=== PATIENT | male | born 1970 | race Caucasian/White ===

== ENCOUNTER → 2021-12-12 | Day surgery (SDC) | payer BC ==
[~2021-12-12] MED LIST: ATORVASTATIN CA20 MG PO; CRANBERRY200 MG PO; CYCLOBENZAPRINE10 MG PO; FENTANYL CITRATE/PF 100MCG/2 ML INJ ONE; GABAPENTIN100 MG PO; HYOSCYAMINE SULFATE 0.5 MG/ML INJ ONE; KOMBIGLYZE XR1 EAC2 PO; LIDOCAINE HCL 2% LOCAL INJ 5 ML SDV VIAL INJ ONE; LISINOPRIL5 MG PO; MIDAZOLAM HCL 2 MG/2 ML VIAL ONE; PROPOFOL IV EMULSION 10 MG/ML 20 ML VIAL ONE; ULTRAM50 MG PO; VITAMIN C1000 MG PO; VITAMIN D310 MCG PO
[2021-12-12 13:20] VITALS: BP 105/73
== END | disposition home or self-care (01) ==
LOC: OR 09:36
PROVIDERS: ATTEND Internal Medicine Gastroenterology
DX: Z12.11 Encounter for screening for malignant neoplasm of colon (principal); D12.2 Benign neoplasm of ascending colon; D12.4 Benign neoplasm of descending colon; K62.1 Rectal polyp; K57.30 Diverticulosis of large intestine without perforation or abscess without bleeding; K64.8 Other hemorrhoids; Z71.3 Dietary counseling and surveillance; E11.9 Type 2 diabetes mellitus without complications; Z01.810 Encounter for preprocedural cardiovascular examination; Z01.812 Encounter for preprocedural laboratory examination; Z20.822 Contact with and (suspected) exposure to COVID-19; Z79.84 Long term (current) use of oral hypoglycemic drugs; Z79.899 Other long term (current) drug therapy
CPT/HCPCS: 36415; 45380; 45385; 82948; 93005; J1980; J2001; J2250; J2704; J3010; U0002; 45378